=== PATIENT | female | born 1960 | race Caucasian/White ===

== ENCOUNTER 2020-01-19 23:59 | Emergency (ER) | payer OTHER, SELFPAY ==
[2020-01-20 00:03] VITALS: BP 147/93; PULSE 95; RESP 16; TEMP 35.9; O2SAT 98; BMI 28.3
--- NOTE | 2020-01-20 00:54 | ED_ITS ---
HPI - Abdominal Pain General Chief Complaint: Abdominal Pain Stated Complaint: ABD PAIN Time Seen by Provider: 01/20/20 00:46 Source: patient Mode of arrival: ambulatory Limitations: no limitations History of Present Illness HPI narrative: patient comes in complaining of 2 days of abdominal pain. Patient states he has diffuse, nonradiating. Patient states it feels more like bloating. Patient denies nausea vomiting or diarrhea, no constipation, no fever no UTI symptoms. For the last 6 months, patient has been taking oral chemotherapy, recently diagnosed with JAK2 mutation elicited complaint: abdominal pain Onset (ago): day(s) Pain Consistency: constant Location: diffuse Severity: moderate Quality: fullness and dull Radiation: none Exacerbating factors: eating Relieving factors: nothing Related Data Home Medications Medication Instructions Recorded Confirmed amitriptyline 01/20/20 aspirin 81 mg PO DAILY 01/20/20 01/20/20 atorvastatin 01/20/20 hydroxyurea [Hydrea] 500 mg PO DAILY 01/20/20 01/20/20 levothyroxine [Levoxyl] 125 mcg PO DAILY 01/20/20 01/20/20 lorazepam 1 mg PO BID PRN 01/20/20 01/20/20 paroxetine HCl [Paxil] 40 mg PO DAILY 01/20/20 01/20/20 Previous Rx's Medication Instructions Recorded levofloxacin 500 mg PO Q24H #7 tab 01/20/20 metronidazole 500 mg PO BID #14 tab 01/20/20 tramadol 50 mg PO Q8H PRN #10 tab 01/20/20 Allergies Allergy/AdvReac Type Severity Reaction Status Date / Time Penicillins [PCN] Allergy Severe Difficulty Verified 01/20/20 00:08 Breathing codeine AdvReac Vomiting Verified 01/20/20 00:08 Review of Systems Review of Systems Constitutional : No Weight loss, No Fever, No Chills, No Night Sweats, No F atigue, No Malaise ENT/Mouth : No Hearing loss, No Ear Pain, No Nasal Congestion, No Sinus Pain, No Hoarseness, No sore throat, No Rhinorrhea, No Swallowing Difficulty Eyes: No Eye Pain, No Swelling, No Redness, No Foreign Body, No Discharge, No Vision Changes Cardiovascular : No Chest Pain, No SOB, No Dyspnea on Exertion, No Orthopnea, No Edema, No Palpitations Respiratory : No Cough, No Sputum, No Wheezing, No Smoke Exposure, No Dyspnea Gastrointestinal : No Nausea, No Vomiting, No Diarrhea, No Constipation, complaining of diffuse abdominal Pain, No Hematochezia, No Melena Genitourinary : no irregular bleeding, No Dysuria, No Urinary Frequency, No Hematuria, No Urinary Incontinence, No Urgency, No Flank Pain, No Urinary Flow Changes, No Hesitancy Musculoskeletal : No joint pain, No Myalgias, No Joint Swelling Skin : No Skin Lesions, No rash Neuro : No Weakness, No Numbness, No Paresthesias, No Loss of Consciousness, No Dizziness, No Headache Psych : No Anxiety/Panic, No Depression, No SI/HI/AH/VH, No Social Issues, Heme/Lymph: No Bruising, No Bleeding,No Lymphadenopathy Endocrine : No Polyuria, No Polydipsia, No Temperature Intolerance Physical Exam Vital Signs: Vital Signs: Vital Signs Temp Pulse Resp BP Pulse Ox 01/20/20 01:03 18 01/20/20 00:03 96.6 F L 95 16 147/93 H 98 Body Mass Index 28.3 Appearance: Alert. Oriented X3. No acute distress. Eyes: Pupils equal, round and reactive to light. ENT: Pharynx normal. Neck: Normal inspection. Neck supple. No lymph nodes noted. No crepitus CVS: Normal heart rate and rhythm. Pulses normal. Normal S1 and S2 Respiratory: No respiratory distress. Breath sounds normal. No Wheezing. No rales Abdomen: Soft , moderate diffuse tenderness. No rigidity. No distention. good BS x4 Skin: Skin warm and dry. Normal skin color. Normal skin turgor. Extremities: No lower extremity edema. No lower extremity edema. No Lacerations. No Rash Neuro: Oriented X 3. No motor deficit. No sensory deficit. Moving all extermities. No slurred speech. Course Reevaluation(s) Reevaluation #1: patient feeling better, still having mild pain. patient will be given 2 antibiotics p.o. and more pain medication prior to discharge. I discussed the CT scan findings with the patient, she needs a colonoscopy to rule out An underlying mass lesion MDM - Abdominal Pain Lab Data Result diagrams: 01/20/20 01:04 01/20/20 01:04 Labs: Lab Results 01/20/20 01/20/20 01/20/20 Range/Units 01:04 01:04 02:32 WBC 10.4 (4.8-10.8) X10*3/uL RBC 2.44 L (4.20-5.50) X10*6/uL Hgb 11.1 L (12.0-16.0) g/dl Hct 30.8 L (37-47) % MCV 126.2 H (80-98) fL MCH 45.5 H (27.0-33.0) pg MCHC 36.0 H (31.0-35.0) g/dl RDW 10.6 L (11.0-16.0) % Plt Count 296 (160-400) X10*3/uL MPV 8.3 L (9.4-12.3) fL Immature Gran % (Auto) 0.3 (0.0-0.4) % Neut % (Auto) 66.7 (45-73) % Lymph % (Auto) 22.5 (20-40) % [place] % (Auto) 9.0 (2-11) % Eos % (Auto) 1.2 (0-4) % Baso % (Auto) 0.3 (0-2) % Lymph # (Auto) 2.3 (1.2-4.9) X10*3/uL [place] # (Auto) 0.9 (0.1-1.2) X10*3/uL Eos # (Auto) 0.1 (0.0-0.4) X10*3/uL Baso # (Auto) 0.0 (0.0-0.2) X10*3/uL Abs Immat Gran (auto) 0.03 (0.00-0.03) X10*3/uL Absolute Neuts (auto) 6.9 (2.0-8.3) X10*3/uL Absolute Nucleated RBC 0.000 (0.0-0.012) X10*3/uL Nucleated RBC % (auto) 0.0 (0.0-0.2) /100WBC Sodium 135 (135-145) mmol/L Potassium 4.3 (3.3-5.1) mmol/l Chloride 102 (96-108) mmol/L Carbon Dioxide 25 (22-29) mmol/L Anion Gap 12 (12-20) BUN 20 H (9-16) mg/dL Creatinine 0.79 (0.5-1.4) mg/dL Estim Creat Clear Calc 68.7 Estimated GFR > 60 Random Glucose 116 H (60-115) mg/dL Calcium 8.6 (8.4-10.2) mg/dL Total Bilirubin 0.2 (0.0-1.0) mg/dL Direct Bilirubin < 0.2 (0.0-0.5) mg/dL AST 16 (5-31) U/L ALT 10 (0-31) U/L Alkaline Phosphatase 71 (39-117) U/L Total Protein 6.8 (6.5-8.0) g/dL Albumin 3.9 (3.5-5.0) g/dL Lipase 19 (8-78) U/L Urine Color YELLOW Urine Appearance CLOUDY Urine pH 6.0 (5.0-8.0) Ur Specific [place] 1.010 (1.005-1.025) Urine Protein NEG (NEG-TRACE) MG/DL Urine Glucose (UA) NEG (NEG) MG/DL Urine Ketones NEG (NEG) MG/DL Urine Blood TRACE (NEG) Urine Nitrite NEG (NEG) Ur Leukocyte Esterase 2+ H (NEG) Urine RBC 5-9 H (0) /HPF Urine WBC 30-49 H (0-4) /HPF Ur Squamous Epith Cells 1+ /LPF Ur Renal Epithelial Cell TRACE /LPF Urine Bacteria 3+ /LPF Urine Mucus 1+ /LPF Imaging Data CT scan - abdomen: Radiologist's impression: Acute diverticulitis of the sigmoid colon. Correlation with recent or followup colonoscopy is advised to exclude an underlying mass lesion Discharge Plan Discharge Clinical Impression: Diverticulitis Patient Disposition: Home, Self-Care Instructions: Diverticulitis (ED) Additional Instructions: Please follow-up with your primary care physician tomorrow. If you have any worsening or new symptoms, please return to the emergency room or call 911 Prescriptions: New metronidazole 500 mg tablet 500 mg PO BID Qty: 14 RF: 0 levofloxacin 500 mg tablet 500 mg PO Q24H Qty: 7 RF: 0 tramadol 50 mg tablet 50 mg PO Q8H PRN (Reason: pain) Qty: 10 RF: 0 No Action hydroxyurea [Hydrea] 500 mg Capsule 500 mg PO DAILY RF: 0 levothyroxine [Levoxyl] 125 mcg Tablet 125 mcg PO DAILY RF: 0 aspirin 81 mg Tablet 81 mg PO DAILY RF: 0 lorazepam 1 mg Tablet 1 mg PO BID PRN (Reason: Anxiety) RF: 0 paroxetine HCl [Paxil] 40 mg Tablet 40 mg PO DAILY RF: 0 amitriptyline RF: 0 atorvastatin RF: 0 PMFSH Past Medical History Medical History Anxiety Cancer Depression High cholesterol Hx of ovarian cyst Hypothyroid LYLY-2 gene mutation Migraine Surgical History History of surgery on left wrist Social History Social History Alcohol intake: never Smoked in Last 30 Days: No Advance Directives: No Advance Directives Information Provided: No
[2020-01-20 01:03] VITALS: RESP 18
[2020-01-20] MEDS: Morphine Sulfate 2 MG/ML CARTRIDGE IVPUSH ×2 (01:03→03:12)
[2020-01-20 01:13] LABS: Basophils Percent Auto 0.3 % (0-2); Eosinophils Absolute Auto 0.1 X10*3/uL (0.0-0.4); Eosinophils Percent Auto 1.2 % (0-4); Hematocrit 30.8 % (37-47); Hemoglobin 11.1 g/dl (12.0-16.0); Imm Gran Abs Auto 0.03 X10*3/uL (0.00-0.03); Imm Gran Pct Auto 0.3 % (0.0-0.4); Lymphocytes Absolute Auto 2.3 X10*3/uL (1.2-4.9); Lymphocytes Percent Auto 22.5 % (20-40); MANUAL DIFF FLAG NO; Mean Corpuscular Hemoglobin 45.5 pg (27.0-33.0); Mean Platelet Volume 8.3 fL (9.4-12.3); Monocytes Absolute Auto 0.9 X10*3/uL (0.1-1.2); Neutrophils Absolute Auto 6.9 X10*3/uL (2.0-8.3); Neutrophils Percent Auto 66.7 % (45-73); Platelet Count 296 X10*3/uL (160-400); Red Blood Count 2.44 X10*6/uL (4.20-5.50); Red Cell Distribution Width 10.6 % (11.0-16.0); White Blood Count 10.4 X10*3/uL (4.8-10.8)
[2020-01-20 01:31] LABS: Mean Corpuscular Volume 126.2 fL (80-98)
[2020-01-20 01:45] LABS: Alanine Aminotransferase 10 U/L (0-31); Albumin Level 3.9 g/dL (3.5-5.0); Alkaline Phosphatase 71 U/L (39-117); Anion Gap 12 (12-20); Aspartate Amino Transferase 16 U/L (5-31); Bilirubin Direct < 0.2 mg/dL (0.0-0.5); Bilirubin Total 0.2 mg/dL (0.0-1.0); Blood Urea Nitrogen 20 mg/dL (9-16); Calcium 8.6 mg/dL (8.4-10.2); Carbon Dioxide 25 mmol/L (22-29); Chloride 102 mmol/L (96-108); Creatinine Clr Calc Pharmacy 68.7; Estimated Glomerular Filt Rate > 60; Glucose Random 116 mg/dL (60-115); Lipase 19 U/L (8-78); Potassium 4.3 mmol/l (3.3-5.1); Sodium 135 mmol/L (135-145); Total Protein 6.8 g/dL (6.5-8.0)
--- NOTE | 2020-01-20 01:50 | CT_ITS ---
EXAMINATION: CT ABDOMEN AND PELVIS WITH CONTRAST CLINICAL INFORMATION: Diffuse abdominal pain COMPARISON: None TECHNIQUE: Multidetector volumetric images were obtained from the superior aspect of the liver through the pubic symphysis following administration of 60 mL of Omnipaque 350 intravenous contrast. Sagittal and coronal reformatted images were obtained on the technologist's workstation. Oral contrast: No This CT examination was performed using dose optimization techniques as appropriate, variously including the following: *Automated exposure control *Adjustment of mA and/or kV according to patient size (this includes techniques or standardized protocols for targeted exams where dose is matched to indication/reason for exam; i.e. extremities or head) *Use of iterative reconstruction technique DLP: 553 mGy-cm FINDINGS: LUNG BASES: The visualized lung bases are unremarkable. LIVER, GALLBLADDER, AND BILIARY TREE: The liver is normal in size, shape, and attenuation. No focal hepatic lesion or biliary ductal dilatation is present. The gallbladder is unremarkable with no evidence of radiopaque gallstones, gallbladder wall thickening, or obvious pericholecystic inflammatory changes. PANCREAS: Unremarkable. SPLEEN: Unremarkable. ADRENAL GLANDS: Unremarkable. KIDNEYS AND URETERS: The kidneys are normal in size, shape, and attenuation. No hydronephrosis, hydroureter, or calculi seen. No perinephric stranding. BLADDER: Unremarkable. GASTROINTESTINAL TRACT: There is a short segment of sigmoid colon wall thickening in the presence of a few diverticula, most suspicious for acute diverticulitis. No pericolonic abscess or free air is seen. No evidence of bowel obstruction. The appendix is unremarkable. ABDOMINAL WALL: No significant hernia is appreciated. LYMPH NODES: Normal. VASCULAR: Minimal atherosclerotic calcification. PELVIC VISCERA: Unremarkable. OSSEOUS STRUCTURES: Scattered degenerative changes are present in the spine, most severe at L4-L5 with disc space narrowing and surrounding endplate irregularity/sclerosis. IMPRESSION: Acute diverticulitis of the sigmoid colon. Correlation with recent or followup colonoscopy is advised to exclude an underlying mass lesion.
--- NOTE | 2020-01-20 02:03 | PC.NURSE ---
pt to imaging via stretcher
[2020-01-20] MEDS: iohexoL 350 MG/ML 100 ML INFUS..BTL 60 ML IV (02:28)
[2020-01-20 02:37] LABS: Glucose Urine UA NEG (NEG); Leukocyte Esterase Urine 2+ (NEG); Nitrite Urine NEG (NEG); Urine Blood TRACE (NEG); Urine Ketones NEG (NEG); Urine Protein NEG (NEG-TRACE)
[2020-01-20 02:45] LABS: Appearance Urine CLOUDY; Color Urine YELLOW
[2020-01-20 02:46] LABS: Bacteria Urine 3+ /LPF; Renal Epithelial Cells Urine TRACE /LPF; Squamous Epithelial Cell Urine 1+ /LPF; WBC Urine 30-49 /HPF (0-4)
[2020-01-20 02:47] LABS: Mucus Urine 1+ /LPF
--- NOTE | 2020-01-20 03:02 | PC.NURSE ---
plan for d.c home
[2020-01-20 03:12] VITALS: BP 146/65; PULSE 80; RESP 18; TEMP 36.8; O2SAT 96
[2020-01-20] MEDS: levoFLOXacin 500 MG TABLET PO (03:12)
[2020-01-20] MEDS: metroNIDAZOLE 500 MG TABLET PO (03:12)
== END 2020-01-20 03:24 | disposition home or self-care (01) ==
PROVIDERS: Emergency Provider Emergency Medicine; PCP Internal Medicine Endocrinology, Diabetes & Metabolism
DX: K57.32 Diverticulitis of large intestine without perforation or abscess without bleeding (principal); C80.1 Malignant (primary) neoplasm, unspecified; Z79.899 Other long term (current) drug therapy
CPT/HCPCS: 36415; 74177; 80048; 80076; 81001; 83690; 85025; 85060; 87086; 96374; 96376; 99284; J2270

== ENCOUNTER → 2020-03-05 10:16 | Outpatient (BNVA) | payer OTHER, SELFPAY | PROVIDERS: Visit Provider Internal Medicine Gastroenterology | DX: Z76.89 Persons encountering health services in other specified circumstances (principal) ==

== ENCOUNTER 2020-04-01 12:48 | Emergency (ER) | payer OTHER, SELFPAY ==
[2020-04-01 14:10] VITALS: BP 138/63; PULSE 84; RESP 18; TEMP 36.8; O2SAT 98; BMI 29.2
--- NOTE | 2020-04-01 16:51 | ED.GENADULT ---
HPI - General Adult General Chief complaint: General Medical Stated complaint: swollen jaw area going down neck Time Seen by Provider: 04/01/20 16:36 Source: patient Mode of arrival: ambulatory Limitations: no limitations History of Present Illness HPI narrative: Patient comes emergency room complaining of right facial swelling. Patient states that she has had swelling in the jaw since this morning. Patient states that she has had a broken tooth for about a year, her just started hurting this morning. MD complaint: Dental pain Related Data Home Medications Medication Instructions Recorded Confirmed amitriptyline 01/20/20 03/05/20 aspirin 81 mg PO DAILY 01/20/20 03/05/20 atorvastatin 01/20/20 03/05/20 hydroxyurea [Hydrea] 500 mg PO DAILY 01/20/20 03/05/20 levothyroxine [Levoxyl] 125 mcg PO DAILY 01/20/20 03/05/20 lorazepam 1 mg PO BID PRN 01/20/20 03/05/20 paroxetine HCl [Paxil] 40 mg PO DAILY 01/20/20 03/05/20 Previous Rx's Medication Instructions Recorded levofloxacin 500 mg PO Q24H #7 tab 01/20/20 metronidazole 500 mg PO BID #14 tab 01/20/20 tramadol 50 mg PO Q8H PRN #10 tab 01/20/20 acetaminophen [Tylenol 8 Hour] 650 mg PO Q8H PRN #20 tab 04/01/20 clindamycin HCl 300 mg PO TID 10 Days #30 cap 04/01/20 Allergies Allergy/AdvReac Type Severity Reaction Status Date / Time Penicillins [PCN] Allergy Severe Difficulty Verified 03/05/20 10:17 Breathing codeine AdvReac Intermediate Vomiting Verified 03/05/20 10:17 Sulfa (Sulfonamide AdvReac Mild gets UTI's Verified 03/05/20 10:17 Antibiotics) Review of Systems Review of Systems: Constitutional : No Weight loss, No Fever, No Chills, No Night Sweats, No Fatigue, No Malaise ENT/Mouth : No Hearing loss, No Ear Pain, No Nasal Congestion, No Sinus Pain, No Hoarseness, No sore throat, No Rhinorrhea, No Swallowing Difficulty, complaining of dental pain in the maxilla right side Eyes: No Eye Pain, No Swelling, No Redness, No Foreign Body, No Discharge, No Vision Changes Cardiovascular : No Chest Pain, No SOB, No Dyspnea on Exertion, No Orthopnea, No Edema, No Palpitations Respiratory : No Cough, No Sputum, No Wheezing, No Smoke Exposure, No Dyspnea Gastrointestinal : No Nausea, No Vomiting, No Diarrhea, No Constipation, No abdominal Pain, No Hematochezia, No Melena Genitourinary : no irregular bleeding, No Dysuria, No Urinary Frequency, No Hematuria, No Urinary Incontinence, No Urgency, No Flank Pain, No Urinary Flow Changes, No Hesitancy Musculoskeletal : No joint pain, No Myalgias, No Joint Swelling Skin : No Skin Lesions, No rash Neuro : No Weakness, No Numbness, No Paresthesias, No Loss of Consciousness, No Dizziness, No Headache Psych : No Anxiety/Panic, No Depression, No SI/HI/AH/VH, No Social Issues, Heme/Lymph: No Bruising, No Bleeding,No Lymphadenopathy Endocrine : No Polyuria, No Polydipsia, No Temperature Intolerance PMFSH Past Medical History Medical History Anxiety Cancer Depression High cholesterol Hx of diverticulitis of colon Hx of ovarian cyst Hypothyroid LYLY-2 gene mutation Migraine Screening for colon cancer Surgical History History of surgery on left wrist Hx of colonoscopy Family History Family History Father No problems noted. Mother Blood disorder Diabetes High blood pressure Maternal Grandmother Colon cancer Social History Social History Household Members: Family Alcohol intake: never Smoking Status: Never smoker Tobacco Type: Cigarette Packs Per Day: 1 Use of substances other than those prescribed or required for medical reasons: No Advance Directives: No Advance Directives Information Provided: No Physical Exam Vital Signs: Vital Signs: Last Vital Signs Temp 98.2 F 04/01/20 14:10 Pulse 84 04/01/20 14:10 Resp 18 04/01/20 14:10 BP 138/63 04/01/20 14:10 Pulse Ox 98 04/01/20 14:10 Body Mass Index 29.2 Appearance: Alert. Oriented X3. No acute distress. Eyes: Pupils equal, round and reactive to light. ENT: Pharynx normal. Mild facial swelling in the right maxilla, pain to palpation over the gum a broken tooth Neck: Normal inspection. Neck supple. No lymph nodes noted. No crepitus CVS: Normal heart rate and rhythm. Pulses normal. Normal S1 and S2 Respiratory: No respiratory distress. Breath sounds normal. No Wheezing. No rales Abdomen: Soft and nontender. No rigidity. No distention. good BS x4 Skin: Skin warm and dry. Normal skin color. Normal skin turgor. Extremities: No lower extremity edema. No lower extremity edema. No Lacerations. No Rash Neuro: Oriented X 3. No motor deficit. No sensory deficit. Moving all extermities. No slurred speech. Course Course Course Narrative: I discussed with the patient that she needs to be seen by her dentist, the broken tooth needs to be extracted. Patient will be started on clindamycin, patient is allergic to penicillin. At this time, patient does not have fever, I instructed the patient to return to the emergency room immediately if she develops fever, as she is getting chemotherapy for JAK2 mutation Discharge Plan Discharge Clinical Impression: Pain, dental, Right facial swelling Patient Disposition: Home, Self-Care Instructions: Dental Abscess (ED) Additional Instructions: Please follow-up with your dentist. If you developed fever, any worsening symptoms, please return to the emergency room immediately Please follow-up with your primary care physician tomorrow. If you have any worsening or new symptoms, please return to the emergency room or call 911 Prescriptions: New clindamycin HCl 300 mg capsule 300 mg PO TID 10 Days Qty: 30 RF: 0 acetaminophen [Tylenol 8 Hour] 650 mg tablet extended release 650 mg PO Q8H PRN (Reason: pain) Qty: 20 RF: 0 No Action hydroxyurea [Hydrea] 500 mg Capsule 500 mg PO DAILY RF: 0 levothyroxine [Levoxyl] 125 mcg Tablet 125 mcg PO DAILY RF: 0 aspirin 81 mg Tablet 81 mg PO DAILY RF: 0 lorazepam 1 mg Tablet 1 mg PO BID PRN (Reason: Anxiety) RF: 0 paroxetine HCl [Paxil] 40 mg Tablet 40 mg PO DAILY RF: 0 amitriptyline RF: 0 atorvastatin RF: 0 metronidazole 500 mg tablet 500 mg PO BID Qty: 14 RF: 0 levofloxacin 500 mg tablet 500 mg PO Q24H Qty: 7 RF: 0 tramadol 50 mg tablet 50 mg PO Q8H PRN (Reason: pain) Qty: 10 RF: 0
== END 2020-04-01 17:05 | disposition home or self-care (01) ==
PROVIDERS: Emergency Provider Emergency Medicine; PCP Internal Medicine Endocrinology, Diabetes & Metabolism
DX: K03.81 Cracked tooth (principal); R22.1 Localized swelling, mass and lump, neck; F17.210 Nicotine dependence, cigarettes, uncomplicated; Z71.6 Tobacco abuse counseling; Z79.899 Other long term (current) drug therapy
CPT/HCPCS: 99283; 99284

== ENCOUNTER 2024-12-04 13:37 | Emergency (ER) | payer OTHER, SELFPAY ==
[2024-12-04 14:10] VITALS: BP 143/67; PULSE 97; RESP 18; TEMP 37.1; O2SAT 97; BMI 28.2
--- NOTE | 2024-12-04 14:16 | ED.FEMALEGU ---
HPI - Female Genitourinary General Chief complaint: Urogenital-Female Stated complaint: blood in urine Time Seen by Provider: 12/04/24 15:34 Source: patient Mode of arrival: ambulatory Limitations: no limitations History of Present Illness ED Provider: HPI Narrative: Patient with LYLY 2 mutation, on aspirin and hydroxyurea, hematuria and dysuria for the past 2 days, no fevers or chills. Related Data Home Medications ?Medication ?Instructions ?Recorded ?Confirmed amitriptyline 01/20/20 03/05/20 aspirin 81 mg tablet 81 mg PO DAILY 01/20/20 03/05/20 atorvastatin 01/20/20 03/05/20 hydroxyurea 500 mg capsule (Hydrea) 500 mg PO DAILY 01/20/20 03/05/20 levothyroxine 125 mcg tablet 125 mcg PO DAILY 01/20/20 03/05/20 (Levoxyl) lorazepam 1 mg tablet 1 mg PO BID PRN Anxiety 01/20/20 03/05/20 paroxetine HCl 40 mg tablet (Paxil) 40 mg PO DAILY 01/20/20 03/05/20 Previous Rx's ?Medication ?Instructions ?Recorded levofloxacin 500 mg tablet 500 mg PO Q24H #7 tabs 01/20/20 metronidazole 500 mg tablet 500 mg PO BID #14 tabs 01/20/20 tramadol 50 mg tablet 50 mg PO Q8H PRN pain #10 tabs 01/20/20 acetaminophen 650 mg 650 mg PO Q8H PRN pain #20 tabs 04/01/20 tablet,extended release (Tylenol 8 Hour) clindamycin HCl 300 mg capsule 300 mg PO TID 10 days #30 caps 04/01/20 cephalexin 500 mg capsule 500 mg PO BID 7 days #14 caps 12/04/24 Allergies Allergy/AdvReac Type Severity Reaction Status Date / Time Penicillins (PCN) Allergy Severe Difficulty Verified 12/04/24 14:13 Breathing codeine AdvReac Intermediate Vomiting Verified 12/04/24 14:13 Sulfa (Sulfonamide AdvReac Mild gets UTI's Verified 12/04/24 14:13 Antibiotics) Review of Systems Constitutional: Constitutional: Reports as per [facility] Past Medical History Medical History Anxiety Cancer Depression High cholesterol Hx of diverticulitis of colon Hx of ovarian cyst Hypothyroid LYLY-2 gene mutation Migraine Screening for colon cancer Surgical History History of surgery on left wrist Hx of colonoscopy Family History Family History Father No problems noted. Mother Blood disorder Diabetes High blood pressure Maternal Grandmother Colon cancer Social History Social History Household Members: Family Alcohol intake: never Cigarette Packs Per Day: 1 Smoked in Last 30 Days: No Use of substances other than those prescribed or required for medical reasons: No Advance Directives: No Advance Directives Information Provided: Yes Physical Exam Vital Signs: Vital Signs: Last Vital Signs Temp 98.7 F 12/04/24 14:10 Pulse 97 12/04/24 14:10 Resp 18 12/04/24 14:10 BP 143/67 H 12/04/24 14:10 Pulse Ox 97 12/04/24 14:10 O2 Del Method Room Air 12/04/24 14:10 BMI result Body Mass Index 28.2 Const: Other: Overall well-appearing Speaking full sentences alert and oriented x4 examined in the chair Abdominal exam is benign no tenderness no rebound no rigidity Course Course Course Narrative: This is a Rapid Medical Examination (RME) performed by Angelique Tong PA-C in triage. Full HPI, ROS, assessment and treatment plan per primary provider in the Main ED. Hx: 63 yo F here for eval of hematuria since this morning. assoc dysuria. Plan: labs, UA Medical Decision Making Medical Decision Making [facility] Narrative: Patient with a clotting disorder inject 2 but on hydroxyurea and aspirin and has been doing well overall, presenting with minimal hematuria and dysuria anticipating UTI, blood work without anemia, no evidence for pyelonephritis clinically, likely cystitis, not in a significant on my mount of pain to suspect renal colic Differential Diagnosis Differential Diagnoses: The differential diagnosis associated with the presentation includes (See above) Lab Data [facility] Lab Attestation statement: I reviewed the patient's lab results. 12/04/24 14:37 12/04/24 14:37 Labs: Lab Results 12/04/24 12/04/24 Range/Units 14:37 15:30 WBC 12.1 H (4.8-10.8) X10*3/uL RBC 3.25 L (4.20-5.50) X10*6/uL Hgb 12.7 (12.0-16.0) g/dl Hct 36.0 L (37.0-47.0) % MCV 110.8 H (80.0-98.0) fL MCH 39.1 H (27.0-33.0) pg MCHC 35.3 H (31.0-35.0) g/dl RDW 11.9 (11.0-16.0) % Plt Count 503 H (160-400) X10*3/uL MPV 7.9 L (9.4-12.3) fL Immature Gran % (Auto) 0.3 (0.0-0.4) % Neut % (Auto) 77.7 H (45-73) % Lymph % (Auto) 14.7 L (20-40) % [place] % (Auto) 5.5 (2-11) % Eos % (Auto) 1.3 (0-4) % Baso % (Auto) 0.5 (0-2) % Lymph # (Auto) 1.8 (1.2-4.9) X10*3/uL [place] # (Auto) 0.7 (0.1-1.2) X10*3/uL Eos # (Auto) 0.2 (0.0-0.4) X10*3/uL Baso # (Auto) 0.1 (0.0-0.2) X10*3/uL Abs Immat Gran (auto) 0.04 H (0.00-0.03) X10*3/uL Absolute Neuts (auto) 9.4 H (2.0-8.3) x10*3/uL Absolute Nucleated RBC 0.000 (0.0-0.012) X10*3/uL Nucleated RBC % (auto) 0.0 (0.0-0.2) /100WBC Sodium 136 (135-145) mmol/L Potassium 4.4 (3.3-5.1) mmol/L Chloride 102 (96-108) mmol/L Carbon Dioxide 22 (22-29) mmol/L Anion Gap 16 (12-20) BUN 15 (9-16) mg/dL Creatinine 0.92 (0.5-1.4) mg/dL Estim Creat Clear Calc 58.0 Estimated GFR > 60 Random Glucose 139 H (60-115) mg/dL Calcium 9.3 D (8.4-10.2) mg/dL Total Bilirubin 0.4 (0.0-1.0) mg/dL AST 23 (5-31) U/L ALT 15 (0-31) U/L Alkaline Phosphatase 73 (39-117) U/L Total Protein 7.2 (6.5-8.0) g/dL Albumin 4.2 (3.5-5.0) g/dL Urine Color Yellow Urine Appearance Cloudy Urine pH 6.5 (5.0-9.0) Ur Specific [place] <= 1.005 (1.005-1.025) Urine Protein Negative (Neg-Trace) mg/dL Urine Glucose (UA) Negative (Negative) mg/dL Urine Ketones Negative (Negative) mg/dL Urine Blood Large (3+) H (Negative) Urine Nitrite Negative (Negative) Ur Leukocyte Esterase Large (3+) H (Negative) Urine RBC 3-5 H (0-2) /HPF Urine WBC >50 H (0-5) /HPF Ur Squamous Epith Cells 3-5 (0-2) /HPF Urine Bacteria Trace (None Seen) Hyaline Casts 0-2 (0-2) /LPF Prescription Management I considered prescription management with: Pain Medication and Antibiotic Discharge Plan Discharge Clinical Impression: Acute hemorrhagic cystitis Patient Disposition: Home, Self-Care Additional Instructions: Please use antibiotics as prescribed, you can take Tylenol 975 mg every 6 hours as needed for discomfort Your hemoglobin and hematocrit as within normal range actually hematocrit is slightly low, make sure to continue follow up with the PCP worsening issues concerns come back to the ER Prescriptions: New cephalexin 500 mg capsule 500 mg PO BID 7 Days Qty: 14 0RF No Action clindamycin HCl 300 mg capsule 300 mg PO TID 10 Days Qty: 30 0RF acetaminophen [Tylenol 8 Hour] 650 mg tablet extended release 650 mg PO Q8H PRN (Reason: pain) Qty: 20 0RF hydroxyurea [Hydrea] 500 mg Capsule 500 mg PO DAILY levothyroxine [Levoxyl] 125 mcg Tablet 125 mcg PO DAILY aspirin 81 mg Tablet 81 mg PO DAILY lorazepam 1 mg Tablet 1 mg PO BID PRN (Reason: Anxiety) paroxetine HCl [Paxil] 40 mg Tablet 40 mg PO DAILY amitriptyline atorvastatin metronidazole 500 mg tablet 500 mg PO BID Qty: 14 0RF levofloxacin 500 mg tablet 500 mg PO Q24H Qty: 7 0RF tramadol 50 mg tablet 50 mg PO Q8H PRN (Reason: pain) Qty: 10 0RF Print Language: Lao
[2024-12-04 14:52] LABS: MANUAL DIFF FLAG NO
[2024-12-04 14:53] LABS: Hematocrit 36.0 % (37.0-47.0); Hemoglobin 12.7 g/dl (12.0-16.0); Imm Gran Abs Auto 0.04 X10*3/uL (0.00-0.03); Imm Gran Pct Auto 0.3 % (0.0-0.4); Lymphocytes Absolute Auto 1.8 X10*3/uL (1.2-4.9); Mean Corpuscular HGB Conc 35.3 g/dl (31.0-35.0); Mean Corpuscular Hemoglobin 39.1 pg (27.0-33.0); NRBC Abs Auto 0.000 X10*3/uL (0.0-0.012); NRBC Pct Auto 0.0 /100WBC (0.0-0.2); Platelet Count 503 X10*3/uL (160-400); Red Blood Count 3.25 X10*6/uL (4.20-5.50); White Blood Count 12.1 X10*3/uL (4.8-10.8)
[2024-12-04 14:54] LABS: Mean Corpuscular Volume 110.8 fL (80.0-98.0)
[2024-12-04 15:10] LABS: Alanine Aminotransferase 15 U/L (0-31); Albumin Level 4.2 g/dL (3.5-5.0); Alkaline Phosphatase 73 U/L (39-117); Anion Gap 16 (12-20); Aspartate Amino Transferase 23 U/L (5-31); Blood Urea Nitrogen 15 mg/dL (9-16); Calcium 9.3 mg/dL (8.4-10.2); Carbon Dioxide 22 mmol/L (22-29); Chloride 102 mmol/L (96-108); Creatinine Clr Calc Pharmacy 58.0; Estimated Glomerular Filt Rate > 60; Potassium 4.4 mmol/L (3.3-5.1); Sodium 136 mmol/L (135-145); Total Protein 7.2 g/dL (6.5-8.0)
--- OUTSIDE RECORDS SUMMARY | 2024-12-04 15:23 | XMS_ITS | Continuity of Care Document ---
Author Organization [facility] Address [address] [facility] [address] [facility] [address] [place] [address] Phone [phone] Care Team Providers Care [employer] Name Role Phone Mt Collado M.D. Care Team Information Re ceiver [phone] Problems Active Problems Provider Date Hypothyroidism Mt Collado M.D. Onset: 0 11/01/2021 Anxiety Mt Collado M.D. Onset: 0 11/01/2021 Thrombocytosis Mt Collado M.D. Onset: 0 11/01/2021 History of transient ischaemic attack Mt Villegas M.D. Onset: 10/09/2022 Multinodular goiter Mt Collado M.D. Onse t: 10/09/2022 Osteoporosis Mt Collado M.D. Onset: 0 10/09/2022 Social History Type Date Description Comments Sex Female Sex Unknown Tobacco Use Start: Unknown Light tobacco sm oker (10 or fewer cigarettes/day) Smoking Status Reviewed: 06/16/24 Light tobacco smoker (10 or fewer cigarettes/day) ETOH Use Denies alcohol use Allergies and adverse reactions Active Allergies Criticality Reaction Severity Comments Date Penicillins Unable to assess criticality 10/02/2022 Codeine Unable to assess criticality 10/02/2022 Sulfamethoxazole Unable to assess criticality 10/02/2022 Medications Active Medications SIG Qnty Indications Order ing Provider Date Vitamin D (Cholecalciferol)25mcg (1000 Ut) Tablets 1 by mouth every day Mt Collado M.D. 10/09/2022 Calcium D-[id number] Capsules 1 tab by mouth every day Mt Collado M.D. 10/09/2022 Oiohziwrc5zg Tablets 1 tab by mouth twice a day as needed as directed 30taadiel Collado M.D. 12/27/2021 Levothyroxine [id number] Tablets Take 1 Tablet By Mouth Every Day 90tabs Mt Collado M.D. Amitriptyline ESR70bq Tablets Take 1 Tablet By Mouth Every Day 90tabs Mt Collado M.D. Atorvastatin Hmbzzmm56us Tablets Take 1 Tablet By Mouth Every Day as Directed 90tabs Mt Collado M.D. Paroxetine KGE02al Tablets Take 1 Tablet By Mouth Every Day 90tabs Mt Collado M.D. Muqeajhbokg186qg Capsules as directed Unknown Verapamil HCL [id number] Caps ER 24HR Take 1 Capsule By Mouth Every Day 90caps Mt Collado M.D. Vital Signs Date Vital Result Comment 06/16/2024 10:52am BP Systolic 110 mmHg BP Diastolic 70 mmHg Heart Rate 72 /min Height 63 inches 5'3 Weight 160.12 lb BMI (Body Mass Index) 28.4 kg/m2 Results Test Acquired Date Facility Test Result H/L Range Note Comprehensive Metabolic Panl 10/09/2022 [facility] Glucose 125 mg/dL High (70-99) BUN 16 mg/dL (8-23) Creatinine 1.0 mg/dL (0.5-1.0 ) Sodium 138 mmol/L (133-145 ) Potassium 5.1 mmol/L (3.6-5.2 ) Chloride 100 mmol/L (98-107) Bicarbonate 26 mmol/L (22-29) Anion Gap 12 (4-17) Albumin 4.4 GM/DL (3.4-4.8 ) Calcium 10.1 mg/dL (8.6-10. 5) Bilirubin,Total 0.3 mg/dL (0-1.2 ) Total Protein 6.9 GM/DL (6.2-8.2 ) Ag Ratio 1.8 Ast 16 U/L (0-32) Alk Phos 73 U/L (35-104) Alt 14 U/L (0-33) Estimated GFR Creatinine 63 ML/MIN/1. 73M2 1 Lipid Panel 10/09/2022 [facility] Cholesterol, Total 224 mg/dL High (<200) Triglyceride 122 mg/dL (<150) HDL Chol 62 mg/dL (>39) LDL Cholesterol , Calculated 138 mg/dL High (0-130) Non HDL Cholesterol (Calc) 162 mg/dL High (<160) TSH With Reflex To FT4 10/09/2022 [facility] TSH With Reflex To FT4 1.15 uIU/mL (0.4-4.2 ) 1 Creatinine based est imated glomerular filtration (eGFR) in adults is calculated using the [employer] recommended 2020 CKD-EPI equation. Estimates GFR from serum creatinine, age and sex. Procedures Date Code Description Status 11/01/2021 NSHOWOFF No Show Office Visit Complet ed Medical Devices Description No Information Available Encounters Type Date Location Provider Dx Diagnosis Office Visit 06/16/2024 10:45a Main Office Mt Collado M.D. 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 06/16/2024 M81.0 Age-related oste oporosis without current pathological fracture Mt Collado M.D. 06/16/2024 E04.2 Multinodular goiter Mt Roca M.D. 06/16/2024 F41.9 Anxiety Mt haas M.D. Plan of Treatment Future Appointment(s):* 12/19/2024 10:00 am - Mt Collado M.D. at Main Office 06/16/2024 - Mt Collado M.D.* E03.9 Hypothyroidism, unspecified * M81.0 Age-related osteoporosis without current pathological fracture * E04.2 Multinodular goiter * F41.9 Anxiety* New Labs:* Comp. Metabolic Panel (14), Ordered: 06/16/24 * Lipid Panel, Ordered: 06/16/24 * CBC With Differential/Platelet, Ordered: 06/16/24 * TSH RFX On Abnormal To Free T4, Ordered: 06/16/24 * Vitamin D, 25-Hydroxy, Ordered: 06/16/24 Functional Status Description No Information Available Mental Status Description No Information Available Referrals Refer to Reason for Referral Status Appt Alex Fields MD SCREENING COLONOSCOPY Closed [address] [facility] [address] [place], [place] [id number] [phone] Mt Collado M.D. SCREENING COLONOSCOPY Created [address] [place] [address] Drive [address] [place] [address] [phone]
[2024-12-04 16:20] LABS: Appearance Urine Cloudy; Glucose Urine UA Negative (Negative); PH 6.5 (5.0-9.0); Specific Gravity - Urine <= 1.005 (1.005-1.025); UMIC TRIGGER UACC YES
[2024-12-04 16:39] LABS: UACC Culture Trigger YES
[2024-12-04 16:53] VITALS: BP 143/67; PULSE 97; RESP 18; TEMP 37.1; O2SAT 97
== END 2024-12-04 16:54 | disposition home or self-care (01) ==
PROVIDERS: Physician Assistant Medical; Emergency Provider Emergency Medicine; PCP Internal Medicine Endocrinology, Diabetes & Metabolism
DX: N30.01 Acute cystitis with hematuria (principal); Z79.899 Other long term (current) drug therapy
CPT/HCPCS: 36415; 80053; 81001; 85025; 87086; 87088; 87186; 99283